=== PATIENT | male | born 2000 | race African-American/Black ===

== ENCOUNTER 2024-06-20 09:14 | Emergency (ER) | payer MEDICAID ==
[~2024-06-20] VITALS: Ht 182.9 cm; Wt 87.0 kg
[2024-06-20 09:16] VITALS: BP 123/55; TEMP 98.9; O2SAT 100
[2024-06-20 09:19] VITALS: PULSE 102; RESP 18; O2SAT 98
[2024-06-20] MEDS ORDERED: IBUP-2029 MT (10:38)
== END 2024-06-20 10:51 | disposition home or self-care (01) ==
LOC: ER 09:14
DX: S93.401A Sprain of unspecified ligament of right ankle, initial encounter (principal); W18.30XA Fall on same level, unspecified, initial encounter; Y93.89 Activity, other specified; Y92.89 Other specified places as the place of occurrence of the external cause; Y99.8 Other external cause status
CPT/HCPCS: 73610; 99283